=== PATIENT | male | born 1955 | race Native Hawaiian/Other Pacific Islander ===

== ENCOUNTER 2016-10-27 08:27 | Observation (INO) | payer BC ==
--- NOTE | 2016-10-27 08:33 | ED ---
General Adult HPI - General Chief complaint: Chest Pain Stated complaint: chest pain Time Seen by Provider: 10/27/16 08:30 Source: patient, EMS, RN notes reviewed, old records reviewed Mode of arrival: EMS Limitations: no limitations - History of Present Illness Initial comments: This is a 60-year-old male to the ER today with chest pain. Patient has medical history of CVA, TIA, diabetes hypertension high cholesterol. Pain started today while at work. His improved with nitro at this time. Patient has history of chest pain similar, mild diaphoresis. Again pain was at work he was not doing any stressful activity - Related Data Home Medications Medication Instructions Recorded Confirmed Aspirin [Adult Low Dose Aspirin EC] 81 mg PO DAILY 05/14/15 05/14/15 metFORMIN HCL [Glucophage] 500 mg PO DAILY 05/14/15 05/14/15 Previous Rx's Medication Instructions Recorded Losartan/Hydrochlorothiazide 1 each PO DAILY #30 tab 05/15/15 [Losartan-Hctz 100-12.5 mg Tab] amLODIPine [Norvasc] 10 mg PO DAILY #30 tab 05/15/15 Allergies Allergy/AdvReac Type Severity Reaction Status Date / Time No Known Allergies Allergy Verified 05/14/15 12:24 Review of Systems ROS Statement: Those systems with pertinent positive or pertinent negative responses have been documented in the HPI. ROS Other: All systems not noted in ROS Statement are negative. Past Medical History Past Medical History: CVA/TIA, Diabetes Mellitus, Hyperlipidemia, Hypertension, Osteoarthritis (OA), Prostate Disorder History of Any Multi-Drug Resistant Organisms: None Reported Past Surgical History: Appendectomy, Joint Replacement Additional Past Surgical History / Comment(s): Left total knee arthroplasty, appendectomy, colonoscopy. Past Psychological History: No Psychological Hx Reported Smoking Status: Former smoker Past Alcohol Use History: None Reported Past Drug Use History: None Reported - Past Family History Mother Family Medical History: Cancer (Mother is 78-year-old has history of coronary artery disease and was recently diagnosed with colon cancer she lives in [place]) , Coronary Artery Disease (CAD) Father Family Medical History: Liver Disease (Father at age of 76 from liver disease) Brother(s) Family Medical History: Cancer (Patient had a 10 brothers one from cholangiocarcinoma.) Sister(s) Family Medical History: Unable to Obtain (Patient has 10 sisters.) Daughter(s) Family Medical History: No Reported History (Patient has 2 daughters) General Exam Limitations: no limitations General appearance: alert, in no apparent distress Head exam: Present: atraumatic, normocephalic, normal inspection Eye exam: Present: normal appearance, PERRL, EOMI. Absent: scleral icterus, conjunctival injection, periorbital swelling ENT exam: Present: normal exam, mucous membranes moist Neck exam: Present: normal inspection. Absent: tenderness, meningismus, lymphadenopathy Respiratory exam: Present: normal lung sounds bilaterally. Absent: respiratory distress, wheezes, rales, rhonchi, stridor Cardiovascular Exam: Present: regular rate, normal rhythm, normal heart sounds. Absent: systolic murmur, diastolic murmur, rubs, gallop, clicks GI/Abdominal exam: Present: soft, normal bowel sounds. Absent: distended, tenderness, guarding, rebound, rigid Extremities exam: Present: normal inspection, full ROM, normal capillary refill. Absent: tenderness, pedal edema, joint swelling, calf tenderness Back exam: Present: normal inspection Neurological exam: Present: alert, oriented X3, CN II-XII intact Psychiatric exam: Present: normal affect, normal mood Skin exam: Present: warm, dry, intact, normal color. Absent: rash Course Vital Signs 10/27/16 10/27/16 08:29 09:28 Temperature 97.8 F Pulse Rate 79 73 Respiratory 20 20 Rate Blood Pressure 160/110 140/91 O2 Sat by Pulse 95 95 Oximetry - Reevaluation(s) Reevaluation #1: 10/27/16 09:50 Patient remains chest pain EKG Findings - EKG Comments: EKG Findings:: EKG shows normal sinus rhythm rate of 80, CA 166, QRS 94, QTC 447 Medical Decision Making - Medical Decision Making [address] [facility] ER for evaluation of chest pain, anterior chest pain having his diaphoresis history of high blood pressure. Patient be admitted for cardiac observation. She'll troponins. - Lab Data Result diagrams: 10/27/16 08:37 10/27/16 08:37 Lab Results 10/27/16 10/27/16 10/27/16 Range/Units 08:37 08:37 08:37 WBC 6.9 (3.8-10.6) k/uL RBC 5.23 (4.30-5.90) m/uL Hgb 15.3 (13.0-17.5) gm/dL Hct 43.9 (39.0-53.0) % MCV 84.0 (80.0-100.0) fL MCH 29.2 (25.0-35.0) pg MCHC 34.8 (31.0-37.0) g/dL RDW 14.2 (11.5-15.5) % Plt Count 179 (150-450) k/uL Neutrophils % 69 % Lymphocytes % 19 % Monocytes % 5 % Eosinophils % 5 % Basophils % 1 % Neutrophils # 4.7 (1.3-7.7) k/uL Lymphocytes # 1.3 (1.0-4.8) k/uL Monocytes # 0.3 (0-1.0) k/uL Eosinophils # 0.3 (0-0.7) k/uL Basophils # 0.1 (0-0.2) k/uL PT (9.0-12.0) sec INR (<1.2) APTT (22.0-30.0) sec Sodium 138 (137-145) mmol/L Potassium 4.8 (3.5-5.1) mmol/L Chloride 103 (98-107) mmol/L Carbon Dioxide 24 (22-30) mmol/L Anion Gap 11 mmol/L BUN 24 H (9-20) mg/dL Creatinine 1.52 H (0.66-1.25) mg/dL Est GFR (MDRD) Af Amer 57 (>60 ml/min/1.73 sqM) Est GFR (MDRD) Non-Af 47 (>60 ml/min/1.73 sqM) Glucose 93 (74-99) mg/dL Calcium 9.3 (8.4-10.2) mg/dL Magnesium 1.9 (1.6-2.3) mg/dL Total Bilirubin 1.1 (0.2-1.3) mg/dL AST 46 (17-59) U/L ALT 41 (21-72) U/L Alkaline Phosphatase 87 (38-126) U/L Total Creatine Kinase 311 H (55-170) U/L CK-MB (CK-2) 3.9 H* (0.0-2.4) ng/mL CK-MB (CK-2) Rel Index 1.3 Troponin I 0.013 (0.000-0.034) ng/mL Total Protein 7.8 (6.3-8.2) g/dL Albumin 4.4 (3.5-5.0) g/dL Lipase 238 (23-300) U/L 10/27/16 Range/Units 08:37 WBC (3.8-10.6) k/uL RBC (4.30-5.90) m/uL Hgb (13.0-17.5) gm/dL Hct (39.0-53.0) % MCV (80.0-100.0) fL MCH (25.0-35.0) pg MCHC (31.0-37.0) g/dL RDW (11.5-15.5) % Plt Count (150-450) k/uL Neutrophils % % Lymphocytes % % Monocytes % % Eosinophils % % Basophils % % Neutrophils # (1.3-7.7) k/uL Lymphocytes # (1.0-4.8) k/uL Monocytes # (0-1.0) k/uL Eosinophils # (0-0.7) k/uL Basophils # (0-0.2) k/uL PT 10.0 (9.0-12.0) sec INR 1.0 (<1.2) APTT 22.4 (22.0-30.0) sec Sodium (137-145) mmol/L Potassium (3.5-5.1) mmol/L Chloride (98-107) mmol/L Carbon Dioxide (22-30) mmol/L Anion Gap mmol/L BUN (9-20) mg/dL Creatinine (0.66-1.25) mg/dL Est GFR (MDRD) Af Amer (>60 ml/min/1.73 sqM) Est GFR (MDRD) Non-Af (>60 ml/min/1.73 sqM) Glucose (74-99) mg/dL Calcium (8.4-10.2) mg/dL Magnesium (1.6-2.3) mg/dL Total Bilirubin (0.2-1.3) mg/dL AST (17-59) U/L ALT (21-72) U/L Alkaline Phosphatase (38-126) U/L Total Creatine Kinase (55-170) U/L CK-MB (CK-2) (0.0-2.4) ng/mL CK-MB (CK-2) Rel Index Troponin I (0.000-0.034) ng/mL Total Protein (6.3-8.2) g/dL Albumin (3.5-5.0) g/dL Lipase (23-300) U/L - Radiology Data Radiology results: report reviewed (Chest x-ray is negative for acute disease), image reviewed Critical Care Time Critical Care Time: Yes Total Critical Care Time: 31 Disposition Clinical Impression: Chest pressure, Hypertension, Chest pain Disposition: ADMITTED IP TO THIS [facility] Condition: Undetermined Referrals: Quirino Reed MD [Primary Care Provider] - 1-2 days
[2016-10-27 08:48] LABS: Basophils # (A) 0.1 k/uL (0-0.2); Basophils % (A) 1 %; CH 30.2; CHCM 36.2; Eosinophils # (A) 0.3 k/uL (0-0.7); Eosinophils % (A) 5 %; HCT 43.9 % (39.0-53.0); HGB 15.3 gm/dL (13.0-17.5); Luc # (Auto) 0.11; Luc % (Auto) 2; Lymphocytes # (A) 1.3 k/uL (1.0-4.8); Lymphocytes % (A) 19 %; MCH 29.2 pg (25.0-35.0); MCHC 34.8 g/dL (31.0-37.0); Mean Platelet Volume 8.4; Monocytes # (A) 0.3 k/uL (0-1.0); Monocytes % (A) 5 %; Neutrophils # (A) 4.7 k/uL (1.3-7.7); Neutrophils % (A) 69 %; RBC 5.23 m/uL (4.30-5.90); RDW 14.2 % (11.5-15.5); WBC 6.9 k/uL (3.8-10.6)
[2016-10-27 08:56] LABS: Partial Thromboplastin Time 22.4 sec (22.0-30.0)
[2016-10-27 08:57] LABS: Calcium 9.3 mg/dL (8.4-10.2); Magnesium 1.9 mg/dL (1.6-2.3); Total Bilirubin 1.1 mg/dL (0.2-1.3); Total Protein 7.8 g/dL (6.3-8.2)
[2016-10-27 09:05] LABS: Potassium 4.8 mmol/L (3.5-5.1)
--- NOTE | 2016-10-27 09:13 | XR ---
EXAMINATION TYPE: XR chest 2V DATE OF EXAM: 10/27/2016 COMPARISON: 05/14/2015 HISTORY: 60-year-old male with chest pain TECHNIQUE: PA and lateral views FINDINGS: The heart is normal size. Similar mild elongation of the thoracic aorta. Mild interstitial prominence is unchanged. Some scattered strandy atelectasis in the mid to lower lungs. No consolidation or pleu ral effusion. IMPRESSION: Chronic changes. No acute process seen.
[2016-10-27 09:23] LABS: Troponin I 0.013 ng/mL (0.000-0.034)
[2016-10-27 09:31] LABS: Creatine Kinase MB 3.9 ng/mL (0.0-2.4)
[2016-10-27] MEDS ORDERED: HEPARIN SODIUM,PORCINE 5,000 UNIT/ML 1 ML VIAL IV ONE (09:47)
[2016-10-27] MEDS ORDERED: NITROGLYCERIN SL TABS 0.4 MG TAB SUBLINGUAL PRN (09:47)
[2016-10-27] MEDS ORDERED: MORPHINE SULFATE 4 MG/ML SYRINGE IV PRN (09:47)
[2016-10-27] MEDS ORDERED: ASPIRIN 81 MG CHEW PO STA (09:47)
[2016-10-27] MEDS: HEPARIN SODIUM,PORCINE/D5W PMX 25,000 UNIT in DEXTROSE/WATER 1 500ML.BAG IV SCH (10:32)
[2016-10-27] MEDS: SODIUM CHLORIDE 0.9% 1,000 ML IV SCH (10:32)
[2016-10-27 11:38] LABS: Glucose,Whole Blood 129 mg/dL (75-99)
[2016-10-27] MEDS ORDERED: TADALAFIL 20 MG PO PRN (14:39)
--- NOTE | 2016-10-27 15:08 | P.CRDCN ---
History of Present Illness Consult date: 10/27/16 Chief complaint: Chest pain History of present illness: This is a pleasant 60-year-old gentleman with a past medical history significant for diabetes, hypertension, dyslipidemia and history of TIA resented to the emergency room complaining of chest discomfort. The patient describes intermittent episodes of chest discomfort, in the mid of the chest, as a sharp kind of discomfort, without any radiation and without any associated symptoms. The EKG showed sinus rhythm with nonspecific changes in the inferior leads. The cardiac enzymes were checked and we have only one set of enzymes came in to be unremarkable. Past Medical History Past Medical History: CVA/TIA, Diabetes Mellitus, Hyperlipidemia, Hypertension, Osteoarthritis (OA), Prostate Disorder History of Any Multi-Drug Resistant Organisms: None Reported Past Surgical History: Appendectomy, Joint Replacement Additional Past Surgical History / Comment(s): Left total knee arthroplasty, appendectomy, colonoscopy. Past Anesthesia/Blood Transfusion Reactions: No Reported Reaction Past Psychological History: No Psychological Hx Reported Smoking Status: Former smoker Past Alcohol Use History: None Reported Past Drug Use History: None Reported - Past Family History Mother Family Medical History: Cancer, Coronary Artery Disease (CAD) Father Family Medical History: Liver Disease Brother(s) Family Medical History: Cancer Sister(s) Family Medical History: Unable to Obtain Daughter(s) Family Medical History: No Reported History Medications and Allergies Home Medications Medication Instructions Recorded Confirmed Type Aspirin [Adult Low Dose Aspirin EC] 81 mg PO DAILY 05/14/15 10/27/16 History Losartan [Cozaar] 50 mg PO HS 10/27/16 10/27/16 History Tadalafil [Cialis] 20 mg PO DAILY PRN 10/27/16 10/27/16 History Triamterene-Hctz 37.5-25Mg 1 cap PO DAILY 10/27/16 10/27/16 History [Dyazide 37.5-25 Capsule] sitaGLIPtin PHOS/metFORMIN HCL 1 tab PO BID 10/27/16 10/27/16 History [Janumet 50-1,000 mg Tablet] Allergies Allergy/AdvReac Type Severity Reaction Status Date / Time No Known Allergies Allergy Verified 05/14/15 12:24 Physical Exam Vitals: Vital Signs Temp Pulse Pulse Resp BP BP Pulse Ox 10/27/16 11:30 16 10/27/16 11:24 98.1 F 71 16 170/99 10/27/16 10:00 97.3 F L 74 18 160/90 97 10/27/16 09:28 73 20 140/91 95 10/27/16 08:29 97.8 F 79 20 160/110 95 Intake and Output 10/27/16 10/27/16 10/27/16 06:59 14:59 22:59 Intake Total 118 Balance 118 Intake: Oral 118 Other: Weight 91.3 kg Patient Weight 10/28/16 06:59 Weight 91.3 kg - Constitutional General appearance: no acute distress - Respiratory Respiratory: bilateral: CTA - Cardiovascular Rhythm: regular Heart sounds: normal: S1, S2 Results 10/27/16 08:37 10/27/16 08:37 Cardiac Enzymes 10/27/16 10/27/16 Range/Units 08:37 08:37 AST 46 (17-59) U/L CK-MB (CK-2) 3.9 H* (0.0-2.4) ng/mL Troponin I 0.013 (0.000-0.034) ng/mL Coagulation 10/27/16 Range/Units 08:37 PT 10.0 (9.0-12.0) sec APTT 22.4 (22.0-30.0) sec CBC 10/27/16 Range/Units 08:37 WBC 6.9 (3.8-10.6) k/uL RBC 5.23 (4.30-5.90) m/uL Hgb 15.3 (13.0-17.5) gm/dL Hct 43.9 (39.0-53.0) % Plt Count 179 (150-450) k/uL Comprehensive Metabolic Panel 10/27/16 Range/Units 08:37 Sodium 138 (137-145) mmol/L Potassium 4.8 (3.5-5.1) mmol/L Chloride 103 (98-107) mmol/L Carbon Dioxide 24 (22-30) mmol/L BUN 24 H (9-20) mg/dL Creatinine 1.52 H (0.66-1.25) mg/dL Glucose 93 (74-99) mg/dL Calcium 9.3 (8.4-10.2) mg/dL AST 46 (17-59) U/L ALT 41 (21-72) U/L Alkaline Phosphatase 87 (38-126) U/L Total Protein 7.8 (6.3-8.2) g/dL Albumin 4.4 (3.5-5.0) g/dL Current Medications Generic Name Dose Route Start Last Admin Trade Name Freq PRN Reason Stop Dose Admin Amlodipine Besylate 10 mg 10/28/16 09:00 Norvasc PO DAILY [facility] Aspirin 325 mg 10/28/16 09:00 Aspirin PO DAILY [facility] Aspirin 81 mg 10/28/16 09:00 Aspirin PO DAILY [facility] Atorvastatin Calcium 80 mg 10/28/16 09:00 Lipitor PO DAILY [facility] Heparin Sodium (Porcine) 0 unit 10/27/16 09:47 Heparin IV Q6HR PRN Low PTT Protocol Heparin Sodium/Dextrose 25,000 500 mls @ 22.53 mls/hr 10/27/16 10:00 10:32 unit/ IV Solution IV 12 units/kg/hr .[id number] [facility] 22.53 mls/hr Protocol Administration 12 UNITS/KG/HR Sodium Chloride 1,000 mls @ 100 mls/hr 10/27/16 10:00 10/27/16 10:32 Saline 0.9% IV 100 mls/hr .Q10H [facility] Administration Losartan Potassium 50 mg 10/27/16 21:00 Cozaar PO HS [facility] Morphine Sulfate 4 mg 10/27/16 09:47 Morphine Sulfate (Inj) IV Q5M PRN Chest Pain Nitroglycerin 0.4 mg 10/27/16 09:47 Nitrostat SUBLINGUAL Q5M PRN Chest Pain Triamterene/HCTZ 1 each 10/28/16 09:00 Dyazide PO DAILY [facility] Intake and Output 10/27/16 10/27/16 10/27/16 06:59 14:59 22:59 Intake Total 118 Balance 118 Intake: Oral 118 Other: Weight 91.3 kg Patient Weight 10/28/16 06:59 Weight 91.3 kg 10/27/16 08:37 10/27/16 08:37 Assessment and Plan Plan: This is a pleasant 60-year-old gentleman who presented to the hospital was atypical chest discomfort. We will rule out acute coronary event. Follow-up with the patient. Will follow -up with the serial cardiac enzymes and repeat EKG.
[2016-10-27 16:31] LABS: Creatine Kinase 317 U/L (55-170)
[2016-10-27 16:42] LABS: Creatine Kinase MB 3.1 ng/mL (0.0-2.4); Troponin I <0.012 ng/mL (0.000-0.034)
[2016-10-27] MEDS: HEPARIN SODIUM,PORCINE 5,000 UNIT/ML 1 ML VIAL IV PRN (16:48)
--- NOTE | 2016-10-27 16:55 | P.HPIM ---
History of Present Illness H&P Date: 10/27/16 Chief Complaint: Chest pain This is a 60-year-old gentleman with known history of diabetes mellitus type 2 hypertension hyperlipidemia TIA patient of Dr. Reed, admitted to the emergency room secondary to intermittent episodes of chest pain midsternal, very sharp, this occurred at work, there is no dictation in no diaphoresis, there is no syncopal events prior to this, patient has had a stress test in the past 1-[address] mathias, there is no coronary artery occlusive disease that were identified then, patient did not have any history of previous myocardial infarction or pulmonary emboli in the past. The emergency room, he was seen by the ER physician and was noted to have a normal EKG, troponins one set is unremarkable, he was given nitroglycerin by EMS on his transit to the hospital, with relief of symptoms, prior to that pain has been going on for at least 2 hours, patient works as welder tool and die. Patient denies any cough or shortness of breath, no hemoptysis Review of Systems Constitutional: Reports as per HPI, Denies anorexia, Denies chills, Denies chronic headaches, Denies chronic pain, Denies daytime sleepiness, Denies fatigue, Denies fever, Denies lethargy, Denies malaise, Denies night sweats, Denies poor appetite, Denies sweats, Denies weakness, Denies weight gain, Denies weight loss Ears, nose, mouth and throat: Reports as per HPI, Denies ant. neck pain, Denies bleeding gums, Denies dental pain, Denies dysphagia, Denies epistaxis, Denies headache, Denies hoarseness, Denies mouth pain, Denies nasal congestion, Denies nasal discharge, Denies neck fullness/pressure, Denies neck lump, Denies nose pain, Denies odynophagia, Denies post-nasal drip, Denies sinus pain, Denies sinus pressure, Denies swelling in mouth, Denies swelling in throat, Denies sore throat, Denies vertigo, Denies voice changes Cardiovascular: Reports as per HPI, Reports chest pain, Denies claudication, Denies decreased exercise tolerance, Denies dyspnea on exertion, Denies edema, Denies high blood pressure, Denies irregular heart beat, Denies leg edema, Denies lightheadedness, Denies orthopnea, Denies palpitations, Denies paroxysmal nocturnal dyspnea, Denies phlebitis, Denies rapid heart beat, Denies shortness of breath, Denies syncope Respiratory: Reports as per HPI, Denies congestion, Denies cough, Denies cough with sputum, Denies dyspnea, Denies excessive sputum, Denies hemoptysis, Denies home oxygen, Denies pain, Denies pain on inspiration, Denies pleurisy, Denies respiratory infections, Denies sleep apnea, Denies snoring, Denies wheezing Gastrointestinal: Reports as per HPI, Denies abdominal pain, Denies belching, Denies bloating, Denies BRBPR, Denies change in bowel habits, Denies coffee ground emesis, Denies constipation, Denies diarrhea, Denies dyspepsia, Denies early satiety, Denies excessive gas, Denies heartburn, Denies hematemesis, Denies hematochezia, Denies indigestion, Denies jaundice, Denies lactose intolerance, Denies loss of appetite, Denies melena, Denies nausea, Denies vomiting Genitourinary: Reports as per HPI, Denies decreased libido, Denies difficulties fathering child, Denies discharge, Denies dysuria, Denies erectile dysfunction, Denies flank pain, Denies genital pain, Denies genital sores, Denies hematuria, Denies impotence, Denies incontinence, Denies kidney stones, Denies nocturia, Denies polyuria, Denies testicular lump, Denies testicular pain, Denies urinary frequency, Denies urinary hesitancy, Denies urinary retention Musculoskeletal: Reports as per HPI, Denies arm numbness/tingling, Denies atrophy, Denies fractures, Denies frequent falls, Denies gait dysfunction, Denies hot joints, Denies leg numbness/tingling, Denies limitation of motion, Denies loss of height, Denies low back pain, Denies morning stiffness, Denies muscle cramps, Denies muscle weakness, Denies myalgias, Denies neck pain, Denies neck stiffness, Denies prior amputations, Denies redness of joints, Denies shooting arm pain, Denies shooting leg pain Integumentary: Reports as per HPI, Denies acne, Denies boils, Denies brittle nails, Denies change in hair/nails, Denies color changes, Denies darkening of skin, Denies depigmentation, Denies dryness, Denies foot/leg ulcers, Denies growths, Denies hirsutism, Denies lesions, Denies onychomycosis, Denies pruritus , Denies rash, Denies sores, Denies striae, Denies unusual bruising, Denies wounds Neurological: Reports as per HPI, Denies aphasia, Denies ataxia, Denies balance difficulties, Denies burning pain, Denies change in mentation, Denies change in smell/taste, Denies change in speech, Denies confusion, Denies convulsions, Denies double vision, Denies gait dysfunction, Denies head injury, Denies headaches, Denies hearing difficulties, Denies lack of coordination, Denies loss of vision, Denies memory loss, Denies migraines, Denies motor disturbance, Denies numbness, Denies paralysis, Denies paresthesias, Denies seizures, Denies sensory deficit, Denies spasticity, Denies syncope, Denies tic, Denies tingling , Denies transient paralysis, Denies tremors, Denies vertigo, Denies weakness, Denies visual changes Psychiatric: Reports as per HPI, Denies anhedonia, Denies anxiety, Denies anxiety attacks, Denies change in appetite, Denies change in libido, Denies change in sleep habits, Denies confusion, Denies depression, Denies difficulty concentrating, Denies disorientation, Denies hallucinations, Denies hopelessness , Denies hypersomnia, Denies insomnia, Denies irritability, Denies memory loss, Denies mood swings, Denies paranoia, Denies sadness/tearfulness, Denies sleep disturbances, Denies suicidal ideation Endocrine: Reports as per HPI, Denies cold intolerance, Denies deepening of the voice, Denies excessive sweating, Denies excessive thirst, Denies fatigue, Denies flushing, Denies heat intolerance, Denies high blood sugars, Denies increase in ring/shoe/hat size, Denies low blood sugars, Denies nocturia, Denies palpitations, Denies polydipsia, Denies polyphagia, Denies polyuria, Denies proptosis, Denies recent glucocorticoid use, Denies thyroid mass, Denies weight change Hematologic/Lymphatic: Reports as per HPI, Denies easy bleeding, Denies easy bruising, Denies lymphadenopathy, Denies lymphedema, Denies thrombophilia Allergic/Immunologic: Reports as per HPI, Denies allergic rhinitis, Denies anaphylaxis, Denies angioedema, Denies gluten intolerance, Denies persistent infections, Denies seasonal allergies, Denies urticaria, Denies wheezing Past Medical History Past Medical History: CVA/TIA, Diabetes Mellitus, Hyperlipidemia, Hypertension, Osteoarthritis (OA), Prostate Disorder History of Any Multi-Drug Resistant Organisms: None Reported Past Surgical History: Appendectomy, Joint Replacement Additional Past Surgical History / Comment(s): Left total knee arthroplasty, appendectomy, colonoscopy. Past Anesthesia/Blood Transfusion Reactions: No Reported Reaction Past Psychological History: No Psychological Hx Reported Smoking Status: Former smoker Past Alcohol Use History: None Reported Past Drug Use History: None Reported - Past Family History Mother Family Medical History: Cancer, Coronary Artery Disease (CAD) Father Family Medical History: Liver Disease Brother(s) Family Medical History: Cancer Sister(s) Family Medical History: Unable to Obtain Daughter(s) Family Medical History: No Reported History Medications and Allergies Home Medications Medication Instructions Recorded Confirmed Type Aspirin [Adult Low Dose Aspirin EC] 81 mg PO DAILY 05/14/15 10/27/16 History Losartan [Cozaar] 50 mg PO HS 10/27/16 10/27/16 History Tadalafil [Cialis] 20 mg PO DAILY PRN 10/27/16 10/27/16 History Triamterene-Hctz 37.5-25Mg 1 cap PO DAILY 10/27/16 10/27/16 History [Dyazide 37.5-25 Capsule] sitaGLIPtin PHOS/metFORMIN HCL 1 tab PO BID 10/27/16 10/27/16 History [Janumet 50-1,000 mg Tablet] Allergies Allergy/AdvReac Type Severity Reaction Status Date / Time No Known Allergies Allergy Verified 05/14/15 12:24 Physical Exam Vitals: Vital Signs Temp Pulse Pulse Resp BP BP Pulse Ox 10/27/16 15:54 98.1 F 71 16 148/93 98 10/27/16 11:30 16 10/27/16 11:24 98.1 F 71 16 170/99 10/27/16 10:00 97.3 F L 74 18 160/90 97 10/27/16 09:28 73 20 140/91 95 08/12/17 08:29 97.8 F 79 20 160/110 95 Intake and Output 10/27/16 10/27/16 10/27/16 06:59 14:59 22:59 Intake Total 118 Balance 118 Intake: Oral 118 Other: Weight 91.3 kg Patient Weight 10/28/16 06:59 Weight 91.3 kg - Constitutional General appearance: cooperative, no acute distress - EENT Eyes: anicteric sclerae, EOMI, PERRLA, dentition normal, normal appearance ENT: hearing grossly normal, normal oropharynx - Neck Neck: no lymphadenopathy, normal ROM, no other, no rigidity, no stridor, no thyromegaly - Respiratory Respiratory: bilateral: CTA, negative: diminished, dullness, rales, rhonchi, wheezing, prolonged expiration - Cardiovascular Rhythm: regular Heart sounds: normal: S1, S2 Abnormal Heart Sounds: no systolic murmur, no diastolic murmur, no rub, no S3 Gallop, no S4 Gallop, no click, no other - Gastrointestinal General gastrointestinal: normal bowel sounds, soft - Integumentary Integumentary: decreased turgor, normal - Neurologic Neurologic: CNII-XII intact - Musculoskeletal Musculoskeletal: gait normal, strength equal bilaterally - Psychiatric Psychiatric: A&O x's 3, intact judgment & insight Results CBC & Chem 7: 10/27/16 08:37 10/27/16 08:37 Labs: Abnormal Lab Results - Last 24 Hours (Table) 10/27/16 10/27/16 10/27/16 Range/Units 08:37 08:37 11:36 APTT (22.0-30.0) sec BUN 24 H (9-20) mg/dL Creatinine 1.52 H (0.66-1.25) mg/dL POC Glucose (mg/dL) 129 H (75-99) mg/dL Total Creatine Kinase 311 H (55-170) U/L CK-MB (CK-2) 3.9 H* (0.0-2.4) ng/mL 10/27/16 10/27/16 Range/Units 15:49 15:49 APTT 43.5 H (22.0-30.0) sec BUN (9-20) mg/dL Creatinine (0.66-1.25) mg/dL POC Glucose (mg/dL) (75-99) mg/dL Total Creatine Kinase 317 H (55-170) U/L CK-MB (CK-2) (0.0-2.4) ng/mL Laboratory Results WBC 6.9 k/uL (3.8-10.6) 10/27/16 08:37 RBC 5.23 m/uL (4.30-5.90) 10/27/16 08:37 Hgb 15.3 gm/dL (13.0-17.5) 10/27/16 08:37 Hct 43.9 % (39.0-53.0) 10/27/16 08:37 MCV 84.0 fL (80.0-100.0) 10/27/16 08:37 MCH 29.2 pg (25.0-35.0) 10/27/16 08:37 MCHC 34.8 g/dL (31.0-37.0) 10/27/16 08:37 RDW 14.2 % (11.5-15.5) 10/27/16 08:37 Plt Count 179 k/uL (150-450) 10/27/16 08:37 Neutrophils % 69 % 10/27/16 08:37 Lymphocytes % 19 % 10/27/16 08:37 Monocytes % 5 % 10/27/16 08:37 Eosinophils % 5 % 10/27/16 08:37 Basophils % 1 % 10/27/16 08:37 Neutrophils # 4.7 k/uL (1.3-7.7) 10/27/16 08:37 Lymphocytes # 1.3 k/uL (1.0-4.8) 10/27/16 08:37 Monocytes # 0.3 k/uL (0-1.0) 10/27/16 08:37 Eosinophils # 0.3 k/uL (0-0.7) 10/27/16 08:37 Basophils # 0.1 k/uL (0-0.2) 10/27/16 08:37 PT 10.0 sec (9.0-12.0) 10/27/16 08:37 INR 1.0 (<1.2) 10/27/16 08:37 APTT 43.5 sec (22.0-30.0) H 10/27/16 15:49 Sodium 138 mmol/L (137-145) 10/27/16 08:37 Potassium 4.8 mmol/L (3.5-5.1) 10/27/16 08:37 Chloride 103 mmol/L (98-107) 10/27/16 08:37 Carbon Dioxide 24 mmol/L (22-30) 10/27/16 08:37 Anion Gap 11 mmol/L 10/27/16 08:37 BUN 24 mg/dL (9-20) H 10/27/16 08:37 Creatinine 1.52 mg/dL (0.66-1.25) H 10/27/16 08:37 Est GFR (MDRD) Af Amer 57 (>60 ml/min/1.73 sqM) 10/27/16 08:37 Est GFR (MDRD) Non-Af 47 (>60 ml/min/1.73 sqM) 10/27/16 08:37 Glucose 93 mg/dL (74-99) 10/27/16 08:37 POC Glucose (mg/dL) 129 mg/dL (75-99) H 10/27/16 11:36 POC Glu Afloat Cryptologic Manager ID Jeanette Ferguson 10/27/16 11:36 Calcium 9.3 mg/dL (8.4-10.2) 10/27/16 08:37 Magnesium 1.9 mg/dL (1.6-2.3) 10/27/16 08:37 Total Bilirubin 1.1 mg/dL (0.2-1.3) 10/27/16 08:37 AST 46 U/L (17-59) 10/27/16 08:37 ALT 41 U/L (21-72) 10/27/16 08:37 Alkaline Phosphatase 87 U/L (38-126) 10/27/16 08:37 Total Creatine Kinase 317 U/L (55-170) H 10/27/16 15:49 CK-MB (CK-2) 3.1 ng/mL (0.0-2.4) H* 10/27/16 15:49 CK-MB (CK-2) Rel Index 1.0 10/27/16 15:49 Troponin I <0.012 ng/mL (0.000-0.034) 10/27/16 15:49 Total Protein 7.8 g/dL (6.3-8.2) 10/27/16 08:37 Albumin 4.4 g/dL (3.5-5.0) 10/27/16 08:37 Lipase 238 U/L (23-300) 10/27/16 08:37 Thrombosis Risk Factor Assmnt - Choose All That Apply Other Risk Factors: Yes Each Risk Factor Represents 2 Points: Age 61-74 years Thrombosis Risk Factor Assessment Total Risk Factor Score: 2 Thrombosis Risk Factor Assessment Level: Low Risk Assessment and Plan Plan: 1. Atypical chest pain, known history of diabetes mellitus hyperlipidemia TIA in the past, patient would be seen consultation by cardiology, patient is on IV heparin with sublingual nitro when necessary, he would be needing either an outpatient stress test should he be discharged over the next 24 hours, follows up with Dr. mathias is no patient continue on aspirin full dose and 25 mg daily echocardiogram was requested 2. Diabetes mellitus type 2, on metformin, which is on hold secondary to possibly a cardiac intervention, patient will be placed on sliding scale coverage 3. Hypertension essential, patient is on losartan 50 mg daily along with amlodipine 10 mg daily, and Dyazide, prior to admission he was on maintenance aspirin 81 mg. 4. BPH on Cialis 20 mg daily when necessary 5. GI prophylaxis on Pepcid
[2016-10-27 17:21] LABS: Glucose,Whole Blood 194 mg/dL (75-99)
[2016-10-27] MEDS: INSULIN LISPRO (humaLOG) 300 UNIT/3 ML VIAL SQ SCH ×2 (17:43→21:18)
[2016-10-27 20:49] LABS: Creatine Kinase 216 U/L (55-170)
[2016-10-27] MEDS ORDERED: LOSARTAN 50 MG TAB PO SCH (21:00)
[2016-10-27 21:02] LABS: Troponin I <0.012 ng/mL (0.000-0.034)
[2016-10-27 21:09] LABS: Creatine Kinase MB 3.2 ng/mL (0.0-2.4)
[2016-10-27 21:12] LABS: Glucose,Whole Blood 212 mg/dL (75-99)
[2016-10-28] MEDS: HEPARIN SODIUM,PORCINE 5,000 UNIT/ML 1 ML VIAL IV PRN (00:09)
[2016-10-28] MEDS: SODIUM CHLORIDE 0.9% 1,000 ML IV SCH ×2 (00:10→06:28)
[2016-10-28] MEDS: HEPARIN SODIUM,PORCINE/D5W PMX 25,000 UNIT in DEXTROSE/WATER 1 500ML.BAG IV SCH (02:42)
[2016-10-28 06:32] LABS: Glucose,Whole Blood 120 mg/dL (75-99)
[2016-10-28 06:57] LABS: Mean Platelet Volume 8.1
[2016-10-28 07:25] VITALS: RESP 16; TEMP 98
[2016-10-28 07:31] LABS: Cholesterol 139 mg/dL (<200); HDL Cholesterol 43 mg/dL (40-60)
[2016-10-28] MEDS: INSULIN LISPRO (humaLOG) 300 UNIT/3 ML VIAL SQ SCH ×2 (08:50→12:06)
[2016-10-28] MEDS ORDERED: TRIAMTERENE-HCTZ 37.5-25MG 1 EACH CAP PO SCH (09:00)
[2016-10-28] MEDS ORDERED: ASPIRIN 81 MG CHEW PO SCH (09:00)
[2016-10-28] MEDS ORDERED: ATORVASTATIN 80 MG TAB PO SCH (09:00)
[2016-10-28] MEDS ORDERED: amLODIPine 10 MG TAB PO SCH (09:00)
[2016-10-28] MEDS ORDERED: ASPIRIN 325 MG TAB PO SCH (09:00)
[2016-10-28 12:03] VITALS: BP 150/90; PULSE 71
[2016-10-28 12:03] LABS: Glucose,Whole Blood 122 mg/dL (75-99)
--- NOTE | 2016-10-28 13:06 | P.PN ---
Progress Note - Text This is a pleasant 60-year-old gentleman with a past medical history significant for diabetes, hypertension, dyslipidemia and history of TIA resented to the emergency room complaining of chest discomfort. The patient describes intermittent episodes of chest discomfort, in the mid of the chest, as a sharp kind of discomfort, without any radiation and without any associated symptoms. The EKG showed sinus rhythm with nonspecific changes in the inferior leads. The cardiac enzymes were checked and came in to be unremarkable. I recommended proceeding with a stress test and the patient would like to go home and have the test done as an outpatient. I will schedule the patient to see Dr. Elizabeth.
== END 2016-10-28 14:45 | disposition home or self-care (01) ==
LOC: EC 08:27 → 3OBS 09:47 → INTOOBSV 09:47
PROVIDERS: ADMIT Internal Medicine Geriatric Medicine; ATTEND Internal Medicine Geriatric Medicine
DX: R07.89 Other chest pain (principal); R61 Generalized hyperhidrosis; E11.9 Type 2 diabetes mellitus without complications; E78.5 Hyperlipidemia, unspecified; I10 Essential (primary) hypertension; N40.0 Benign prostatic hyperplasia without lower urinary tract symptoms; Z86.73 Personal history of transient ischemic attack (TIA), and cerebral infarction without residual deficits; Z79.82 Long term (current) use of aspirin; Z79.84 Long term (current) use of oral hypoglycemic drugs; Z87.891 Personal history of nicotine dependence; Z82.49 Family history of ischemic heart disease and other diseases of the circulatory system; Z79.899 Other long term (current) drug therapy
CPT/HCPCS: 99291; 96376 ×4; 96365 ×2; 96366; 36415; 94760; 93005; 80061; 80053; 83036; 82550; 82553; 83690; 83735; 84484; 85025; 85049; 85610; 85730 ×2; 71020; G0378 ×2; J1644 ×4

== ENCOUNTER 2017-11-06 20:47 | Observation (INO) | payer BC ==
[2017-11-06 21:21] LABS: Glucose,Whole Blood 208 mg/dL (75-99)
--- NOTE | 2017-11-06 21:22 | ED ---
General Adult HPI - General Chief complaint: Chest Pain Stated complaint: chest fluttering/lightheaded Time Seen by Provider: 11/06/17 21:19 Source: patient, RN notes reviewed, old records reviewed Mode of arrival: wheelchair Limitations: no limitations - History of Present Illness Initial comments: This is a 62-year-old male to the ER for evasive chest pain. Patient does have significant medical history for heart disease. Multiple medical comorbidities contribute. Patient substernal radiating chest pain rating to his left back with dizziness lightheadedness and headache. Patient did not pass out, denies any other complaints. Patient still complaining of chest pain currently. No shortness of breath no diaphoresis - Related Data Home Medications Medication Instructions Recorded Confirmed Aspirin [Adult Low Dose Aspirin EC] 81 mg PO DAILY 05/14/15 10/27/16 Losartan [Cozaar] 50 mg PO HS 10/27/16 10/27/16 Tadalafil [Cialis] 20 mg PO DAILY PRN 10/27/16 10/27/16 Triamterene-Hctz 37.5-25Mg 1 cap PO DAILY 10/27/16 10/27/16 [Dyazide 37.5-25 Capsule] sitaGLIPtin PHOS/metFORMIN HCL 1 tab PO BID 10/27/16 10/27/16 [Janumet 50-1,000 mg Tablet] Previous Rx's Medication Instructions Recorded amLODIPine [Norvasc] 10 mg PO DAILY #30 tab 05/15/15 Atorvastatin [Lipitor] 20 mg PO DAILY #30 tablet 10/28/16 Allergies Allergy/AdvReac Type Severity Reaction Status Date / Time No Known Allergies Allergy Verified 05/14/15 12:24 Review of Systems ROS Statement: Those systems with pertinent positive or pertinent negative responses have been documented in the HPI. ROS Other: All systems not noted in ROS Statement are negative. Past Medical History Past Medical History: CVA/TIA, Diabetes Mellitus, Hyperlipidemia, Hypertension, Osteoarthritis (OA), Prostate Disorder History of Any Multi-Drug Resistant Organisms: None Reported Past Surgical History: Appendectomy, Joint Replacement Additional Past Surgical History / Comment(s): Left total knee arthroplasty, appendectomy, colonoscopy. Past Anesthesia/Blood Transfusion Reactions: No Reported Reaction Past Psychological History: No Psychological Hx Reported Smoking Status: Former smoker Past Alcohol Use History: None Reported Past Drug Use History: None Reported - Past Family History Mother Family Medical History: Cancer, Coronary Artery Disease (CAD) Father Family Medical History: Liver Disease Brother(s) Family Medical History: Cancer Sister(s) Family Medical History: Unable to Obtain Daughter(s) Family Medical History: No Reported History General Exam Limitations: no limitations General appearance: alert, in no apparent distress Head exam: Present: atraumatic, normocephalic, normal inspection Eye exam: Present: normal appearance, PERRL, EOMI. Absent: scleral icterus, conjunctival injection, periorbital swelling ENT exam: Present: normal exam, mucous membranes moist Neck exam: Present: normal inspection. Absent: tenderness, meningismus, lymphadenopathy Respiratory exam: Present: normal lung sounds bilaterally. Absent: respiratory distress, wheezes, rales, rhonchi, stridor Cardiovascular Exam: Present: regular rate, normal rhythm, normal heart sounds. Absent: systolic murmur, diastolic murmur, rubs, gallop, clicks GI/Abdominal exam: Present: soft, normal bowel sounds. Absent: distended, tenderness, guarding, rebound, rigid Extremities exam: Present: normal inspection, full ROM, normal capillary refill. Absent: tenderness, pedal edema, joint swelling, calf tenderness Back exam: Present: normal inspection Neurological exam: Present: alert, oriented X3, CN II-XII intact Psychiatric exam: Present: normal affect, normal mood Skin exam: Present: warm, dry, intact, normal color. Absent: rash Course Vital Signs 11/06/17 11/06/17 11/06/17 20:55 20:56 22:02 Temperature 98.0 F Pulse Rate 78 93 82 Respiratory 16 18 16 Rate Blood Pressure 184/98 184/97 166/93 O2 Sat by Pulse 98 100 Oximetry EKG Findings - EKG Comments: EKG Findings:: EKG shows sinus rhythm rate of 88, RI 154, QRS 86, QTc 447 Medical Decision Making - Lab Data Result diagrams: 11/06/17 21:25 11/06/17 21:25 Lab Results 11/06/17 11/06/17 11/06/17 Range/Units 21:11 21:25 21:25 WBC 7.2 (3.8-10.6) k/uL RBC 4.90 (4.30-5.90) m/uL Hgb 15.0 (13.0-17.5) gm/dL Hct 41.4 (39.0-53.0) % MCV 84.5 (80.0-100.0) fL MCH 30.6 (25.0-35.0) pg MCHC 36.2 (31.0-37.0) g/dL RDW 13.0 (11.5-15.5) % Plt Count 166 (150-450) k/uL Neutrophils % 74 % Lymphocytes % 16 % Monocytes % 4 % Eosinophils % 4 % Basophils % 1 % Neutrophils # 5.3 (1.3-7.7) k/uL Lymphocytes # 1.1 (1.0-4.8) k/uL Monocytes # 0.3 (0-1.0) k/uL Eosinophils # 0.3 (0-0.7) k/uL Basophils # 0.1 (0-0.2) k/uL PT (9.0-12.0) sec INR (<1.2) APTT (22.0-30.0) sec Sodium (137-145) mmol/L Potassium (3.5-5.1) mmol/L Chloride (98-107) mmol/L Carbon Dioxide (22-30) mmol/L Anion Gap mmol/L BUN (9-20) mg/dL Creatinine (0.66-1.25) mg/dL Est GFR (CKD-EPI)AfAm (>60 ml/min/1.73 sqM) Est GFR (CKD-EPI)NonAf (>60 ml/min/1.73 sqM) Glucose (74-99) mg/dL POC Glucose (mg/dL) 208 H (75-99) mg/dL POC Glu Clinical Case Manager ID Cyrus Currie Calcium (8.4-10.2) mg/dL Magnesium (1.6-2.3) mg/dL Total Bilirubin (0.2-1.3) mg/dL AST (17-59) U/L ALT (21-72) U/L Alkaline Phosphatase (38-126) U/L Total Creatine Kinase 277 H (55-170) U/L CK-MB (CK-2) 4.3 H* (0.0-2.4) ng/mL CK-MB (CK-2) Rel Index 1.6 Troponin I <0.012 (0.000-0.034) ng/mL Total Protein (6.3-8.2) g/dL Albumin (3.5-5.0) g/dL 11/06/17 11/06/17 Range/Units 21:25 21:25 WBC (3.8-10.6) k/uL RBC (4.30-5.90) m/uL Hgb (13.0-17.5) gm/dL Hct (39.0-53.0) % MCV (80.0-100.0) fL MCH (25.0-35.0) pg MCHC (31.0-37.0) g/dL RDW (11.5-15.5) % Plt Count (150-450) k/uL Neutrophils % % Lymphocytes % % Monocytes % % Eosinophils % % Basophils % % Neutrophils # (1.3-7.7) k/uL Lymphocytes # (1.0-4.8) k/uL Monocytes # (0-1.0) k/uL Eosinophils # (0-0.7) k/uL Basophils # (0-0.2) k/uL PT 9.8 (9.0-12.0) sec INR 1.0 (<1.2) APTT 22.4 (22.0-30.0) sec Sodium 140 (137-145) mmol/L Potassium 3.7 (3.5-5.1) mmol/L Chloride 104 (98-107) mmol/L Carbon Dioxide 25 (22-30) mmol/L Anion Gap 11 mmol/L BUN 18 (9-20) mg/dL Creatinine 1.20 (0.66-1.25) mg/dL Est GFR (CKD-EPI)AfAm 74 (>60 ml/min/1.73 sqM) Est GFR (CKD-EPI)NonAf 64 (>60 ml/min/1.73 sqM) Glucose 196 H (74-99) mg/dL POC Glucose (mg/dL) (75-99) mg/dL POC Glu Clinical Case Manager ID Calcium 9.4 (8.4-10.2) mg/dL Magnesium 1.9 (1.6-2.3) mg/dL Total Bilirubin 0.9 (0.2-1.3) mg/dL AST 48 (17-59) U/L ALT 70 (21-72) U/L Alkaline Phosphatase 91 (38-126) U/L Total Creatine Kinase (55-170) U/L CK-MB (CK-2) (0.0-2.4) ng/mL CK-MB (CK-2) Rel Index Troponin I (0.000-0.034) ng/mL Total Protein 7.6 (6.3-8.2) g/dL Albumin 4.1 (3.5-5.0) g/dL Disposition Clinical Impression: Chest pain, Chest pressure Disposition: ADMITTED IP TO THIS HOSP Condition: Undetermined Instructions: Chest Pain (ED) Is patient prescribed a controlled substance at d/c from ED?: No Referrals: Quirino Reed MD [Primary Care Provider] - 1-2 days
[2017-11-06 21:46] LABS: Basophils # (A) 0.1 k/uL (0-0.2); Basophils % (A) 1 %; Eosinophils # (A) 0.3 k/uL (0-0.7); Eosinophils % (A) 4 %; HCT 41.4 % (39.0-53.0); Lymphocytes # (A) 1.1 k/uL (1.0-4.8); Lymphocytes % (A) 16 %; MCH 30.6 pg (25.0-35.0); MCHC 36.2 g/dL (31.0-37.0); MCV 84.5 fL (80.0-100.0); Mean Platelet Volume 8.2; Monocytes # (A) 0.3 k/uL (0-1.0); Monocytes % (A) 4 %; Neutrophils # (A) 5.3 k/uL (1.3-7.7); Neutrophils % (A) 74 %; Platelet Count 166 k/uL (150-450); WBC 7.2 k/uL (3.8-10.6)
[2017-11-06] MEDS ORDERED: SODIUM CHLORIDE 0.9% 500 ML IV STA (21:48)
[2017-11-06 22:00] LABS: Albumin 4.1 g/dL (3.5-5.0); Calcium 9.4 mg/dL (8.4-10.2); Magnesium 1.9 mg/dL (1.6-2.3); Total Bilirubin 0.9 mg/dL (0.2-1.3); Total Protein 7.6 g/dL (6.3-8.2)
[2017-11-06 22:01] LABS: Partial Thromboplastin Time 22.4 sec (22.0-30.0); Prothrombin Time 9.8 sec (9.0-12.0)
[2017-11-06 22:04] LABS: Potassium 3.7 mmol/L (3.5-5.1)
[2017-11-06 22:05] LABS: Creatine Kinase 277 U/L (55-170)
[2017-11-06 22:18] LABS: Troponin I <0.012 ng/mL (0.000-0.034)
[2017-11-06 22:23] LABS: Creatine Kinase MB 4.3 ng/mL (0.0-2.4)
--- NOTE | 2017-11-06 22:26 | XR ---
EXAMINATION TYPE: XR chest 2V DATE OF EXAM: 11/06/2017 COMPARISON: 10/27/2016 HISTORY: Chest pain TECHNIQUE: Frontal and lateral views of the chest are obtained. FINDINGS: Heart and mediastinum are normal. Lungs are clear. Diaphragm is normal. There are chest le ads. Thoracic aorta shows mild atheromatous change. Bony thorax appears intact. IMPRESSION: No active cardiopulmonary disease. No change.
--- NOTE | 2017-11-06 22:32 | CT ---
EXAMINATION TYPE: CT brain neris baer con DATE OF EXAM: 11/06/2017 COMPARISON: CT brain 05/14/2015 HISTORY: Headache and neck pain x couple days. CT DLP: 1368.5 mGycm Automated exposure control for dose reduction was used. TECHNIQUE: CT scan of the head and cervical spine are performed without contrast. FINDINGS: Ventricles of normal size. There is no mass effect nor midline shift. There is no sign of intracranial hemorrhage. The calvarium appears intact. The cervical vertebra have normal alignment. There is some mild anterior spurring at C3-4 and C6-7. T here is hypertrophic mild facet arthropathy in the cervical spine. IMPRESSION: Negative CT scan of the brain. Mild spondylotic change in the cervical spine. No fracture. Head CT scan is stable compared to old exam.
[2017-11-06] MEDS ORDERED: ASPIRIN 81 MG PO STA (23:10)
[2017-11-06] MEDS ORDERED: NITROGLYCERIN SL TABS 0.4 MG TAB SUBLINGUAL PRN (23:10)
[2017-11-06] MEDS ORDERED: SODIUM CHLORIDE 0.9% 1,000 ML IV SCH (23:15)
[2017-11-06] MEDS ORDERED: METOPROLOL TARTRATE 25 MG TAB PO STA (23:49)
[2017-11-07 00:30] VITALS: BMI 27.8
[2017-11-07 04:50] LABS: Cholesterol 134 mg/dL (<200); HDL Cholesterol 40 mg/dL (40-60); LDL Cholesterol,Calculated 73 mg/dL (0-99); Triglycerides 103 mg/dL (<150)
[2017-11-07 05:01] LABS: Creatine Kinase 191 U/L (55-170)
[2017-11-07 05:13] LABS: Troponin I <0.012 ng/mL (0.000-0.034)
[2017-11-07 05:35] LABS: Creatine Kinase MB 2.8 ng/mL (0.0-2.4)
[2017-11-07 06:43] LABS: Glucose,Whole Blood 149 mg/dL (75-99)
[2017-11-07 07:47] VITALS: RESP 18
[2017-11-07] MEDS ORDERED: METOPROLOL TARTRATE 25 MG TAB PO SCH (09:00)
[2017-11-07] MEDS ORDERED: ASPIRIN 325 MG TAB PO SCH (09:00)
[2017-11-07] MEDS ORDERED: ATORVASTATIN 20 MG TAB PO SCH (09:45)
[2017-11-07] MEDS ORDERED: LOSARTAN 50 MG TAB PO SCH ×2 (09:45→10:00)
[2017-11-07] MEDS ORDERED: amLODIPine 5 MG TAB PO SCH (09:45)
[2017-11-07] MEDS ORDERED: AMINOPHYLLINE 500 MG/20 ML VIAL IV PRN (09:56)
[2017-11-07] MEDS ORDERED: REGADENOSON 0.4 MG/5 ML SYRINGE IV ONE (09:56)
[2017-11-07 09:58] LABS: Creatine Kinase 174 U/L (55-170)
[2017-11-07 10:11] LABS: Troponin I <0.012 ng/mL (0.000-0.034)
[2017-11-07 10:15] LABS: Creatine Kinase MB 2.7 ng/mL (0.0-2.4)
--- NOTE | 2017-11-07 10:15 | P.CRDCN ---
History of Present Illness History of present illness: Mr. Hooks is a pleasant 62-year-old male past medical history significant for hypertension, dyslipidemia, diabetes mellitus, CVA and former nicotine dependence. He follows with Dr. Elizabeth in the office. We have been asked to see him in consultation for chest pain. He states after eating dinner last night he started feeling acutely dizzy. He walked to his car and sat down for a few minutes to see if he was going to be able to drive. The dizziness persisted and he wasn't able to drive. He asked his daughter to drive him home. While they were in the car he started experiencing heavy pressure sensation in the midsternal region radiating to the left shoulder and through to the back. The pain ultimately subsided on its own. He also describes a headache. Blood pressure on arrival 184/98 heart rate 78 afebrile. Lopressor 25 mg given in ED. EKG reveals sinus mechanism with no acute ST or T-wave abnormalities. Chest xray negative for an acute cardiopulmonary process. Laboratory data reviewed, hemoglobin 15, platelets 166, sodium 140, potassium 3.7, creatinine 1.2, magnesium 1.9, cardiac enzymes negative 2, LDL 73, HDL 40. Current cardiac medications include atorvastatin 20 mg daily, aspirin 81 mg daily, losartan 100 mg daily, amlodipine 5 mg daily. He also takes Janumet. Bilateral carotid duplex done in the office June 2017 reveals 16-49% stenosis bilaterally. Most recent Lexiscan stress test performed in the office June 2015 reveals normal perfusion study with no evidence of reversible cardiac ischemia. Most recent echocardiogram performed in the office June 2017 reveals preserved left ventricular systolic function with ejection fraction 60%. Ultrasound of the abdominal aorta performed April 2016 in the office reveals mild atherosclerosis noted throughout maximum aortic diameter 2.12 cm no evidence of disease. Review of Systems At the time of my exam: CONSTITUTIONAL: Denies fever. Denies chills. EYES: Denies blurred vision. Denies vision changes. Denies eye pain. EARS, NOSE, MOUTH & THROAT: Denies headache. Denies sore throat. Denies ear pain. CARDIOVASCULAR: Denies chest pain. Denies shortness of breath. Denies orthopnea. Denies PND. Denies palpitations. RESPIRATORY: Denies cough. GASTROINTESTINAL: Denies abdominal pain. Denies diarrhea. Denies constipation. Denies nausea. Denies vomiting. MUSCULOSKELETAL: Denies myalgias. INTEGUMENTARY: Denies pruitis. Denies rash. NEUROLOGIC: Denies numbness. Denies tingling. Denies weakness. PSYCHIATRIC: Denies anxiety. Denies depression. ENDOCRINE: Denies fatigue. Denies weight change. Denies polydipsia. Denies polyurina. GENITOURINARY: Denies burning, hematuria or urgency with micturation. HEMATOLOGIC: Denies history of anemia. Denies bleeding. Past Medical History Past Medical History: CVA/TIA, Diabetes Mellitus, Hyperlipidemia, Hypertension, Osteoarthritis (OA), Prostate Disorder History of Any Multi-Drug Resistant Organisms: None Reported Past Surgical History: Appendectomy, Joint Replacement Additional Past Surgical History / Comment(s): Left total knee arthroplasty, appendectomy, colonoscopy. Past Anesthesia/Blood Transfusion Reactions: No Reported Reaction Past Psychological History: No Psychological Hx Reported Smoking Status: Former smoker Past Alcohol Use History: None Reported Past Drug Use History: None Reported - Past Family History Mother Family Medical History: Cancer, Coronary Artery Disease (CAD) Father Family Medical History: Liver Disease Brother(s) Family Medical History: Cancer Sister(s) Family Medical History: Unable to Obtain Daughter(s) Family Medical History: No Reported History Medications and Allergies Home Medications Medication Instructions Recorded Confirmed Type Aspirin [Adult Low Dose Aspirin EC] 81 mg PO DAILY 05/14/15 11/07/17 History sitaGLIPtin PHOS/metFORMIN HCL 1 tab PO BID 10/27/16 11/07/17 History [Janumet 50-1,000 mg Tablet] Atorvastatin [Lipitor] 20 mg PO DAILY #30 tablet 10/28/16 11/07/17 Rx Ibuprofen [Motrin] 800 mg PO TID PRN 11/07/17 11/07/17 History Losartan Potassium 100 mg PO DAILY 11/07/17 11/07/17 History Allergies Allergy/AdvReac Type Severity Reaction Status Date / Time No Known Allergies Allergy Verified 11/07/17 08:45 Physical Exam Vitals: Vital Signs Temp Pulse Pulse Resp BP BP Pulse Ox 11/07/17 07:20 97.4 F L 58 L 18 159/93 98 11/07/17 04:30 167/91 11/07/17 03:52 16 11/07/17 03:41 98.3 F 69 16 174/94 96 11/07/17 00:00 98.0 F 73 16 182/91 96 11/06/17 23:24 84 16 180/92 95 11/06/17 22:02 82 16 166/93 100 11/06/17 20:56 98.0 F 93 18 184/97 11/06/17 20:55 78 16 184/98 98 Intake and Output 11/06/17 11/07/17 11/07/17 22:59 06:59 14:59 Other: Voiding Method Toilet # Voids 1 Weight 92.986 kg 93.2 kg Blood pressure 159/93 heart rate 58 afebrile maintaining oxygen saturation on nasal cannula GENERAL: This is a 62-year-old male in no apparent distress at the time of my examination. HEENT: Head is atraumatic, normocephalic. Pupils are equal, round. Sclerae anicteric. Conjunctivae are clear. Mucous membranes of the mouth are moist. Neck is supple. There is no jugular venous distention. No carotid bruit is heard. LUNGS: Clear to auscultation no wheezes, rales or rhonchi. No chest wall tenderness is noted on palpation or with deep breathing. HEART: Regular rate and rhythm without murmurs, rubs or gallops. S1 and S2 heard. ABDOMEN: Soft, nontender. Bowel sounds are heard. No organomegaly noted. EXTREMITIES: No evidence of peripheral edema and no calf tenderness noted. VASCULAR: Radial and dorsalis pedis pulses palpated, no evidence of clubbing. NEUROLOGIC: Patient is awake, alert and oriented x3. Results 11/06/17 21:25 11/06/17 21:25 Cardiac Enzymes 11/06/17 11/06/17 11/06/17 Range/Units 21:11 21:25 21:25 WBC 7.2 (3.8-10.6) k/uL RBC 4.90 (4.30-5.90) m/uL Hgb 15.0 (13.0-17.5) gm/dL Hct 41.4 (39.0-53.0) % MCV 84.5 (80.0-100.0) fL MCH 30.6 (25.0-35.0) pg MCHC 36.2 (31.0-37.0) g/dL RDW 13.0 (11.5-15.5) % Plt Count 166 (150-450) k/uL Neutrophils % 74 % Lymphocytes % 16 % Monocytes % 4 % Eosinophils % 4 % Basophils % 1 % Neutrophils # 5.3 (1.3-7.7) k/uL Lymphocytes # 1.1 (1.0-4.8) k/uL Monocytes # 0.3 (0-1.0) k/uL Eosinophils # 0.3 (0-0.7) k/uL Basophils # 0.1 (0-0.2) k/uL PT (9.0-12.0) sec INR (<1.2) APTT (22.0-30.0) sec Sodium (137-145) mmol/L Potassium (3.5-5.1) mmol/L Chloride (98-107) mmol/L Carbon Dioxide (22-30) mmol/L Anion Gap mmol/L BUN (9-20) mg/dL Creatinine (0.66-1.25) mg/dL Est GFR (CKD-EPI)AfAm (>60 ml/min/1.73 sqM) Est GFR (CKD-EPI)NonAf (>60 ml/min/1.73 sqM) Glucose (74-99) mg/dL POC Glucose (mg/dL) 208 H (75-99) mg/dL POC Glu Dog Hair [employer]pper ID Cyrus Currie Calcium (8.4-10.2) mg/dL Magnesium (1.6-2.3) mg/dL Total Bilirubin (0.2-1.3) mg/dL AST (17-59) U/L ALT (21-72) U/L Alkaline Phosphatase (38-126) U/L Total Creatine Kinase 277 H (55-170) U/L CK-MB (CK-2) 4.3 H* (0.0-2.4) ng/mL CK-MB (CK-2) Rel Index 1.6 Troponin I <0.012 (0.000-0.034) ng/mL Total Protein (6.3-8.2) g/dL Albumin (3.5-5.0) g/dL Triglycerides (<150) mg/dL Cholesterol (<200) mg/dL LDL Cholesterol, Calc (0-99) mg/dL HDL Cholesterol (40-60) mg/dL 11/06/17 11/06/17 11/07/17 Range/Units 21:25 21:25 03:40 WBC (3.8-10.6) k/uL RBC (4.30-5.90) m/uL Hgb (13.0-17.5) gm/dL Hct (39.0-53.0) % MCV (80.0-100.0) fL MCH (25.0-35.0) pg MCHC (31.0-37.0) g/dL RDW (11.5-15.5) % Plt Count (150-450) k/uL Neutrophils % % Lymphocytes % % Monocytes % % Eosinophils % % Basophils % % Neutrophils # (1.3-7.7) k/uL Lymphocytes # (1.0-4.8) k/uL Monocytes # (0-1.0) k/uL Eosinophils # (0-0.7) k/uL Basophils # (0-0.2) k/uL PT 9.8 (9.0-12.0) sec INR 1.0 (<1.2) APTT 22.4 (22.0-30.0) sec Sodium 140 (137-145) mmol/L Potassium 3.7 (3.5-5.1) mmol/L Chloride 104 (98-107) mmol/L Carbon Dioxide 25 (22-30) mmol/L Anion Gap 11 mmol/L BUN 18 (9-20) mg/dL Creatinine 1.20 (0.66-1.25) mg/dL Est GFR (CKD-EPI)AfAm 74 (>60 ml/min/1.73 sqM) Est GFR (CKD-EPI)NonAf 64 (>60 ml/min/1.73 sqM) Glucose 196 H (74-99) mg/dL POC Glucose (mg/dL) (75-99) mg/dL POC Glu Dog Hair [employer]pper ID Calcium 9.4 (8.4-10.2) mg/dL Magnesium 1.9 (1.6-2.3) mg/dL Total Bilirubin 0.9 (0.2-1.3) mg/dL AST 48 (17-59) U/L ALT 70 (21-72) U/L Alkaline Phosphatase 91 (38-126) U/L Total Creatine Kinase 191 H (55-170) U/L CK-MB (CK-2) 2.8 H* (0.0-2.4) ng/mL CK-MB (CK-2) Rel Index 1.5 Troponin I <0.012 (0.000-0.034) ng/mL Total Protein 7.6 (6.3-8.2) g/dL Albumin 4.1 (3.5-5.0) g/dL Triglycerides (<150) mg/dL Cholesterol (<200) mg/dL LDL Cholesterol, Calc (0-99) mg/dL HDL Cholesterol (40-60) mg/dL 11/07/17 11/07/17 Range/Units 03:40 06:40 WBC (3.8-10.6) k/uL RBC (4.30-5.90) m/uL Hgb (13.0-17.5) gm/dL Hct (39.0-53.0) % MCV (80.0-100.0) fL MCH (25.0-35.0) pg MCHC (31.0-37.0) g/dL RDW (11.5-15.5) % Plt Count (150-450) k/uL Neutrophils % % Lymphocytes % % Monocytes % % Eosinophils % % Basophils % % Neutrophils # (1.3-7.7) k/uL Lymphocytes # (1.0-4.8) k/uL Monocytes # (0-1.0) k/uL Eosinophils # (0-0.7) k/uL Basophils # (0-0.2) k/uL PT (9.0-12.0) sec INR (<1.2) APTT (22.0-30.0) sec Sodium (137-145) mmol/L Potassium (3.5-5.1) mmol/L Chloride (98-107) mmol/L Carbon Dioxide (22-30) mmol/L Anion Gap mmol/L BUN (9-20) mg/dL Creatinine (0.66-1.25) mg/dL Est GFR (CKD-EPI)AfAm (>60 ml/min/1.73 sqM) Est GFR (CKD-EPI)NonAf (>60 ml/min/1.73 sqM) Glucose (74-99) mg/dL POC Glucose (mg/dL) 149 H (75-99) mg/dL POC Glu Dog Hair Clipper ID Latanya Castillo Calcium (8.4-10.2) mg/dL Magnesium (1.6-2.3) mg/dL Total Bilirubin (0.2-1.3) mg/dL AST (17-59) U/L ALT (21-72) U/L Alkaline Phosphatase (38-126) U/L Total Creatine Kinase (55-170) U/L CK-MB (CK-2) (0.0-2.4) ng/mL CK-MB (CK-2) Rel Index Troponin I (0.000-0.034) ng/mL Total Protein (6.3-8.2) g/dL Albumin (3.5-5.0) g/dL Triglycerides 103 (<150) mg/dL Cholesterol 134 (<200) mg/dL LDL Cholesterol, Calc 73 (0-99) mg/dL HDL Cholesterol 40 (40-60) mg/dL Coagulation 11/06/17 Range/Units 21:25 PT 9.8 (9.0-12.0) sec APTT 22.4 (22.0-30.0) sec Lipids 11/07/17 Range/Units 03:40 Triglycerides 103 (<150) mg/dL Cholesterol 134 (<200) mg/dL HDL Cholesterol 40 (40-60) mg/dL CBC 11/06/17 Range/Units 21:25 WBC 7.2 (3.8-10.6) k/uL RBC 4.90 (4.30-5.90) m/uL Hgb 15.0 (13.0-17.5) gm/dL Hct 41.4 (39.0-53.0) % Plt Count 166 (150-450) k/uL Comprehensive Metabolic Panel 11/06/17 Range/Units 21:25 Sodium 140 (137-145) mmol/L Potassium 3.7 (3.5-5.1) mmol/L Chloride 104 (98-107) mmol/L Carbon Dioxide 25 (22-30) mmol/L BUN 18 (9-20) mg/dL Creatinine 1.20 (0.66-1.25) mg/dL Glucose 196 H (74-99) mg/dL Calcium 9.4 (8.4-10.2) mg/dL AST 48 (17-59) U/L ALT 70 (21-72) U/L Alkaline Phosphatase 91 (38-126) U/L Total Protein 7.6 (6.3-8.2) g/dL Albumin 4.1 (3.5-5.0) g/dL Current Medications Generic Name Dose Route Start Last Admin Trade Name Freq PRN Reason Stop Dose Admin Aspirin 325 mg 11/07/17 09:00 Aspirin PO DAILY [facility] Sodium Chloride 1,000 mls @ 20 mls/hr 11/06/17 23:15 11/06/17 23:22 Saline 0.9% IV 20 mls/hr .Q24H ALONZO Administration Metoprolol Tartrate 25 mg 11/07/17 09:00 Lopressor PO BID ALONZO Nitroglycerin 0.4 mg 11/06/17 23:10 Nitrostat SUBLINGUAL Q5M PRN Chest Pain Intake and Output 11/06/17 11/07/17 11/07/17 22:59 06:59 14:59 Other: Voiding Method Toilet # Voids 1 Weight 92.986 kg 93.2 kg 11/06/17 21:25 11/06/17 21:25 Assessment and Plan Assessment: ASSESSMENT Chest pain, atypical. An acute coronary event has been ruled out with no EKG evidence of ischemia and negative cardiac enzymes. Hypertension, uncontrolled on losartan 100 mg daily and amlodipine 5 mg daily. Dyslipidemia Diabetes mellitus PLAN Mr. Hooks had a recent echocardiogram performed in the office in June which revealed preserved left ventricular systolic function ejection fraction 60%. We will not repeat an echocardiogram on this admission. Check d-dimer, if elevated will order CTA chest for PE. Perform Lexiscan stress echocardiogram to assess for reversible cardiac ischemia. Resume amlodipine and losartain. Discontinue lopressor. Will possibly increase amlodipine if needed. Further recommendations to follow based on clinical course. Thank you kindly for this consultation. Nurse Practitioner note has been reviewed, I agree with a documented findings and plan of care. Patient was seen and examined.
--- NOTE | 2017-11-07 11:20 | CT ---
EXAMINATION TYPE: CT angio chest DATE OF EXAM: 11/07/2017 COMPARISON: Prior CT angiogram of the chest dated 05/14/2015 HISTORY: Elevated d-dimer, dizziness, chest pain CT DLP: mGycm Automated exposure control for dose reduction was used. CONTRAST: CTA scan of the thorax is performed , patient injected with mL of , pulmonary embolism protocol. MIP images are created and reviewed. 3D reconstructed images are created on an independent workstation and reviewed. FINDINGS: LUNGS: The lungs are grossly clear, there is no concerning parenchymal mass or nodule identified. T here is no pleural effusion or pneumothorax seen. The tracheobronchial tree is patent. AORTA: Descending aorta measures approximately 3.4 cm. Previously this measured approximately 3 cm.. Aorta is not opacified. MEDIASTINUM: There is satisfactory enhancement of the pulmonary artery and its branches, there is no CT evidence for pulmonary embolism. There are no greater than 1 cm hilar or mediastinal lymph nodes. No pericardial effusion is seen. There are coronary artery calcifications. OTHER: Liver shows low attenuation likely due to hepatic steatosis.. Thoracic spondylosis noted. IMPRESSION: CORONARY ARTERY DISEASE. NO EVIDENT PULMONARY EMBOLISM. DESCENDING AORTIC ECTASIA. HEPATIC STEATOSIS. ADDITIONAL FINDINGS ABOVE.
[2017-11-07 12:15] LABS: Glucose,Whole Blood 133 mg/dL (75-99)
[2017-11-07 12:51] VITALS: BP 157/85; PULSE 62; TEMP 98.2
--- NOTE | 2017-11-07 13:37 | EST ---
EXERCISE STRESS DATE OF SERVICE: 11/07/2017 AGE: 62 SEX: Male HT: 6' WT: 205 PROTOCOL: Lexiscan Cardiolite STAGE: DURATION OF EXERCISE: HEART RATE REST: 63 BLOOD PRESSURE REST: 165/100 MAXIMUM HEART RATE ACHIEVED: 81 MAXIMUM BLOOD PRESSURE: 175/98 85% MPHR: 100% MPHR: METS: INDICATIONS: Chest pain. CLINICAL INFORMATION: Baseline rhythm sinus mechanism rate 63, normal axis and intervals, normal electrocardiogram. Baseline blood pressure 165/100 mmHg. The patient received injection of Lexiscan. Electrocardiographic monitoring revealed no evidence of diagnostic ischemic ST deviation. Cardiolite was injected per protocol. CONCLUSION: 1. Nondiagnostic electrocardiograph stress testing. 2. Nuclear images will be reported separately. MMODL / IJN: [id number] /
--- NOTE | 2017-11-07 13:39 | P.HPIM ---
History of Present Illness H&P Date: 11/07/17 Chief Complaint: Chest pain HISTORY AND PHYSICAL AND DISCHARGE SUMMARY: This is a 62-year-old male patient of Dr. Reed with past medical history of hypertension and hypertensive cardio vascular disease with left ventricular hypertrophy, hyperlipidemia, history of diabetes mellitus type 2, benign prostatic hypertrophy, history of CVA in the past. Patient gives history that he was eating dinner at the [facility] and then he was starting to leave to go home and he felt very lightheaded. He got in the car and sat in the car and felt he was not safe to drive. He was having palpitations and chest pain by this time. He was then brought into [facility] emergency center for evaluation. CT of the brain was negative. CT of the cervical spine revealed hypertrophic mild facet arthropathy in the cervical spine. Patient had pizza and Mountain Dew for dinner. Troponins have been negative on 3 draws. Triglycerides 103, cholesterol 134, LDL 73, HDL 40. Patient was given 1 dose of Lopressor in the emergency center. Patient was placed in the observation unit and subsequent seen by cardiology. D-dimer was ordered by cardiology which came back at 0.83. CTA of the chest was done that was negative for pulmonary embolism. Stress test reveals no reversible ischemia. Patient is currently chest pain-free. He denies any palpitations or lightheadedness. Patient will be discharged home today in stable condition. Review of Systems All systems: negative Constitutional: Denies chills, Denies fever, Denies poor appetite, Denies weight loss Eyes: denies blurred vision, denies pain Ears, nose, mouth and throat: Denies headache, Denies sore throat, Denies vertigo Cardiovascular: Reports chest pain, Reports lightheadedness, Reports palpitations, Denies decreased exercise tolerance, Denies dyspnea on exertion, Denies edema, Denies leg edema, Denies shortness of breath, Denies syncope Respiratory: Denies cough, Denies cough with sputum, Denies dyspnea, Denies wheezing Gastrointestinal: Denies abdominal pain, Denies diarrhea, Denies loss of appetite, Denies nausea, Denies vomiting Musculoskeletal: Denies myalgias Integumentary: Denies pruritus, Denies rash Neurological: Denies numbness, Denies weakness Psychiatric: Denies anxiety, Denies depression Endocrine: Denies fatigue, Denies weight change Past Medical History Past Medical History: CVA/TIA, Diabetes Mellitus, Hyperlipidemia, Hypertension, Osteoarthritis (OA), Prostate Disorder History of Any Multi-Drug Resistant Organisms: None Reported Past Surgical History: Appendectomy, Joint Replacement Additional Past Surgical History / Comment(s): Left total knee arthroplasty, appendectomy, colonoscopy. Past Anesthesia/Blood Transfusion Reactions: No Reported Reaction Past Psychological History: No Psychological Hx Reported Smoking Status: Former smoker Past Alcohol Use History: None Reported Additional Past Alcohol Use History / Comment(s): Patient was a smoker for 5 years. He quit alcohol use in 1994. He denies any illicit drug use. Past Drug Use History: None Reported - Past Family History Mother Family Medical History: Cancer, Coronary Artery Disease (CAD) Additional Family Medical History / Comment(s): Other is alive at age 81 with history of colon cancer, coronary artery disease. Father Family Medical History: Liver Disease Additional Family Medical History / Comment(s): Father at age 71 from, patient's from liver disease. Brother(s) Family Medical History: Cancer Additional Family Medical History / Comment(s): Patient has a total of 7 brothers and one has from cholangiocarcinoma. He denies any significant medical problems with his other siblings. Patient has 1 sister with no major medical problems. Patient has 2 daughters with no major medical problems. Sister(s) Family Medical History: Unable to Obtain Daughter(s) Family Medical History: No Reported History Medications and Allergies Home Medications Medication Instructions Recorded Confirmed Type Aspirin [Adult Low Dose Aspirin EC] 81 mg PO DAILY 05/14/15 11/07/17 History sitaGLIPtin PHOS/metFORMIN HCL 1 tab PO BID 10/27/16 11/07/17 History [Janumet 50-1,000 mg Tablet] Atorvastatin [Lipitor] 20 mg PO DAILY #30 tablet 10/28/16 11/07/17 Rx Ibuprofen [Motrin] 800 mg PO TID PRN 11/07/17 11/07/17 History Losartan Potassium 100 mg PO DAILY 11/07/17 11/07/17 History amLODIPine [Norvasc] 10 mg PO DAILY #30 tab 11/07/17 Rx Allergies Allergy/AdvReac Type Severity Reaction Status Date / Time No Known Allergies Allergy Verified 11/07/17 08:45 Physical Exam Vitals: Vital Signs Temp Pulse Pulse Resp BP BP Pulse Ox 11/07/17 07:20 97.4 F L 58 L 18 159/93 98 11/07/17 04:30 167/91 11/07/17 03:52 16 11/07/17 03:41 98.3 F 69 16 174/94 96 11/07/17 00:00 98.0 F 73 16 182/91 96 11/06/17 23:24 84 16 180/92 95 11/06/17 22:02 82 16 166/93 100 11/06/17 20:56 98.0 F 93 18 184/97 11/06/17 20:55 78 16 184/98 98 Intake and Output 11/06/17 11/07/17 11/07/17 22:59 06:59 14:59 Other: Voiding Method Toilet Toilet # Voids 1 Weight 92.986 kg 93.2 kg General appearance: average body habitus, mild distress - EENT Eyes: Reports EOMI, Reports PERRLA, Reports fundus normal, Reports normal apperance, Denies photophobia, Denies dentition normal, Denies ptosis, Denies scleral icterus ENT: Reports NA/AT, Reports normal oropharynx, Denies thrush, Denies tonsillar exudates, Denies tonsillar swelling Ears: bilateral: normal - Neck Neck: Reports normal ROM, Denies lymphadenopathy, Denies rigidity, Denies stridor, Denies thyromegaly Carotids: bilateral: upstroke delayed Thyroid: bilateral: normal size - Respiratory Respiratory: bilateral: diminished, negative: dullness, rales, rhonchi, wheezing , prolonged expiration, prolonged inspiration - Cardiovascular Rhythm: regular Heart sounds: normal: S1, S2 Abnormal Heart Sounds: Reports systolic murmur, Reports S4 Gallop, Denies rub, Denies S3 Gallop, Denies click - Gastrointestinal General gastrointestinal: Reports normal bowel sounds, Reports soft, Denies splenomegaly, Denies tenderness, Denies umbilical hernia, Denies ventral hernia - Integumentary Integumentary: Reports normal, Reports normal turgor, Denies rash, Denies ulcer - Neurologic Neurologic: CNII-XII intact - Musculoskeletal Musculoskeletal: Reports gait normal, Reports strength equal bilaterally - Psychiatric Psychiatric: Reports A&O x's 3, Reports appropriate affect, Reports intact judgment & insight Results CBC & Chem 7: 11/06/17 21:25 11/06/17 21:25 Labs: Abnormal Lab Results - Last 24 Hours (Table) 11/06/17 11/06/17 11/06/17 Range/Units 21:11 21:25 21:25 D-Dimer (<0.60) mg/L FEU Glucose 196 H (74-99) mg/dL POC Glucose (mg/dL) 208 H (75-99) mg/dL Total Creatine Kinase 277 H (55-170) U/L CK-MB (CK-2) 4.3 H* (0.0-2.4) ng/mL 11/07/17 11/07/17 11/07/17 Range/Units 03:40 06:40 09:16 D-Dimer (<0.60) mg/L FEU Glucose (74-99) mg/dL POC Glucose (mg/dL) 149 H (75-99) mg/dL Total Creatine Kinase 191 H 174 H (55-170) U/L CK-MB (CK-2) 2.8 H* 2.7 H* (0.0-2.4) ng/mL 11/07/17 Range/Units 09:16 D-Dimer 0.83 H (<0.60) mg/L FEU Glucose (74-99) mg/dL POC Glucose (mg/dL) (75-99) mg/dL Total Creatine Kinase (55-170) U/L CK-MB (CK-2) (0.0-2.4) ng/mL Thrombosis Risk Factor Assmnt - DVT/VTE Prophylaxis DVT/VTE Prophylaxis: Pharmacologic Prophylaxis ordered - Choose All That Apply Each Risk Factor Represents 2 Points: Age 61-74 years Thrombosis Risk Factor Assessment Total Risk Factor Score: 2 Thrombosis Risk Factor Assessment Level: Low Risk Assessment and Plan Plan: 1. Chest pain, lightheadedness and palpitations. Acute coronary syndrome ruled out. Symptoms may be secondary to caffeine from Mountain Dew. 2. Hypertension and hypertensive cardiovascular disease . Continue patient on losartan 100 mg orally once every day, and amlodipine 10 mg orally once every day. 3. Hyperlipidemia. Lipitor 20 mg orally once every day, and lipid panel as above. 4. History of diabetes mellitus type 2. Hold off Janumet for 48 hours since the patient had a CTA. 5. History of TIA/CVA. Continue Lipitor 20 mg orally once every day for secondary prevention and aspirin 81 mg orally once every day. 6. DVT prophylaxis. Early ambulation. 7. GI prophylaxis. Continue Pepcid. Patient is observation status. Discharge plan: Return home Impression and plan of care have been directed as dictated by the signing physician. Vijaya Gilliland nurse practitioner acting as scribe for signing physician.
[2017-11-07] MEDS ORDERED: amLODIPine 5 MG TAB PO STA (13:40)
--- NOTE | 2017-11-07 13:42 | NM ---
EXAMINATION TYPE: NM stress lexiscan cardiolite DATE OF EXAM: 11/07/2017 COMPARISON: NONE HISTORY: Chest pain TECHNIQUE: After the intravenous administration of 10.2 mCi Tc 99m Sestamibi - Cardiolite resting SP ECT images acquired 45 minutes post injection. The patient received 0.4mg Lexiscan, 26.0 mCi Tc 99m Sestamibi - Stress images obtained [address] injection FINDINGS: Review of stress and rest SPECT images demonstrates no distinct perfusion abnormality. Gated analysi s shows normal wall motion with an estimated left ventricular ejection fraction of 63 %. IMPRESSION: No scintigraphic evidence for reversible ischemia.
[2017-11-07 14:18] LABS: Hemoglobin A1C 7.2 % (4.0-6.0)
[2017-11-08] MEDS ORDERED: amLODIPine 10 MG TAB PO SCH (09:00)
[2017-11-08] MEDS ORDERED: ASPIRIN 81 MG PO SCH (09:00)
== END 2017-11-07 16:53 | disposition home or self-care (01) ==
LOC: EC 20:47 → 3OBS 23:10
PROVIDERS: ADMIT Internal Medicine Geriatric Medicine; ATTEND Internal Medicine Geriatric Medicine
DX: R07.89 Other chest pain (principal); R42 Dizziness and giddiness; R00.2 Palpitations; R51 Headache; R79.89 Other specified abnormal findings of blood chemistry; I11.9 Hypertensive heart disease without heart failure; E11.9 Type 2 diabetes mellitus without complications; I65.23 Occlusion and stenosis of bilateral carotid arteries; E78.5 Hyperlipidemia, unspecified; N40.0 Benign prostatic hyperplasia without lower urinary tract symptoms; M46.92 Unspecified inflammatory spondylopathy, cervical region; M19.90 Unspecified osteoarthritis, unspecified site; Z79.82 Long term (current) use of aspirin; Z79.84 Long term (current) use of oral hypoglycemic drugs; Z79.899 Other long term (current) drug therapy; Z86.73 Personal history of transient ischemic attack (TIA), and cerebral infarction without residual deficits; Z90.89 Acquired absence of other organs; Z96.652 Presence of left artificial knee joint; Z87.891 Personal history of nicotine dependence; Z82.49 Family history of ischemic heart disease and other diseases of the circulatory system; Z83.79 Family history of other diseases of the digestive system; Z80.9 Family history of malignant neoplasm, unspecified; Z80.0 Family history of malignant neoplasm of digestive organs
CPT/HCPCS: 99285 ×2; 36415; 93005; 93017; 85379; 80061; 80053; 82550 ×2; 82553 ×2; 83735; 84484 ×2; 85025; 85610; 85730; 83036; 71046; 72125; 70450; 71275; 78452; G0378 ×2; A9500; J2785; Q9967